=== PATIENT | female | born 1960 | race Caucasian/White ===

== ENCOUNTER 2017-08-28 21:04 | Emergency (ER) | payer BC, OTHER ==
[~2017-08-28] VITALS: Ht 170.2 cm; Wt 61.2 kg
--- NOTE | 2017-08-28 21:35 | NUR ---
PT C/O NAUSEA, AND BURNING PAIN RADIATING FROM CHEST TO L ARM X 1 DAY. DENIES VOMITING OR SOB. NO ACUTE DISTRESS NOTED AT THIS TIME.
--- NOTE | 2017-08-28 21:45 | NUR ---
PT ALSO C/O DIARRHEA X1 DAY
--- NOTE | 2017-08-28 21:57 | NUR ---
ER MD at bedside for patient evaluation
[2017-08-28] MEDS ORDERED: MAG HYDROX/AL HYDROX/SIMETH 30 ML LIQUID UDC PO ONE (22:00)
[2017-08-28] MEDS ORDERED: ASPIRIN 81 MG TAB.CHEW PO ONE (22:00)
[2017-08-28 22:12] LABS: BASOPHILS % (AUTO) 0.4 % (0.0-2.0); EOSINOPHILS # (AUTO) 0.1 K/uL (0.0-0.7); HEMATOCRIT 38.9 % (31.2-41.9); HEMOGLOBIN 13.1 g/dL (10.9-14.3); LYMPHOCYTES % (AUTO) 29.2 % (20.5-51.5); MEAN CORPUSCULAR HEMOGLOBIN 29.4 uug (24.7-32.8); MEAN CORPUSCULAR HGB CONC 34 g/dL (32.3-35.6); MEAN CORPUSCULAR VOLUME 87.3 fL (75.5-95.3); MONOCYTES # (AUTO) 0.5 K/uL (2.0-10.0); MONOCYTES % (AUTO) 7.7 % (0.0-11.0); NEUTROPHILS # (AUTO) 4.2 K/uL (1.8-8.9); NEUTROPHILS % (AUTO) 60.7 % (38.5-71.5); PLATELET COUNT (AUTO) 309 K/uL (179-408); RED BLOOD CELL COUNT(AUTO) 4.46 MIL/uL (3.63-4.92); WHITE BLOOD COUNT (AUTO) 6.9 K/uL (3.8-11.8)
[2017-08-28] MEDS ORDERED: MAG HYDROX/AL HYDROX/SIMETH 30 ML LIQUID UDC ONE (22:18)
[2017-08-28] MEDS ORDERED: ASPIRIN 81 MG TAB.CHEW ONE (22:18)
[2017-08-28 22:27] LABS: CREATININE 0.9 mg/dL (0.6-1.3); POTASSIUM 3.7 mmol/L (3.5-5.1)
[2017-08-28 22:33] LABS: BILIRUBIN,DIRECT 0.1 mg/dL (0.0-0.2); BILIRUBIN,TOTAL 0.6 mg/dL (0.2-1.0); TOTAL PROTEIN, SERUM 7.8 g/dL (6.4-8.2)
[2017-08-28] MEDS ORDERED: ONDANSETRON ODT 4 MG TAB.RAPDIS SL ONE (23:30)
--- NOTE | 2017-08-28 23:37 | NUR ---
Patient discharged to home in stable conditon. Written and verbal after care instructions given. Patient verbalizes understanding of instructions. ALL BELONGINGS W/ PATIENT. PERIPHERAL IV REMOVED PRIOR TO DISCHARGE
[2017-08-28 23:39] VITALS: BP 126/71
[2017-08-28] MEDS ORDERED: ONDANSETRON ODT 4 MG TAB.RAPDIS ONE (23:47)
== END 2017-08-28 23:41 | disposition home or self-care (01) ==
LOC: ER 21:05
DX: R07.89 Other chest pain (principal); F32.9 Major depressive disorder, single episode, unspecified; J45.909 Unspecified asthma, uncomplicated
CPT/HCPCS: 36415; 70030-TC; 71045; 85025; 85730; 93005; A4663; Q0162

== ENCOUNTER 2017-09-01 20:59 | Emergency (ER) | payer BC ==
[~2017-09-01] VITALS: Ht 170.2 cm; Wt 59.0 kg
[2017-09-01] MEDS ORDERED: ESCITALOPRAM 5 MG (21:18)
[2017-09-01] MEDS ORDERED: CONJUGATED ESTROGENS (21:18)
[2017-09-01] MEDS ORDERED: CODEINE (21:18)
[2017-09-01] MEDS ORDERED: LORAZEPAM 1MG TABLETS (21:18)
[2017-09-01] MEDS ORDERED: MEDROXYPROGESTERONE (21:18)
[2017-09-01] MEDS ORDERED: PROMETHAZINE (21:18)
[2017-09-01] MEDS ORDERED: METOCLOPRAMIDE 10 MG (21:18)
--- NOTE | 2017-09-01 21:21 | NUR ---
DR. SIDDIQI AT BEDSIDE FOR MSE.
[2017-09-01] MEDS ORDERED: KETOROLAC TROMETHAMINE 30 MG INJ IVP ONE (21:30)
[2017-09-01] MEDS ORDERED: IV NORMAL SALINE 1000 ML BAG IV ONE (21:30)
[2017-09-01] MEDS ORDERED: ONDANSETRON 4 MG/2 ML VIAL IV ONE (21:30)
[2017-09-01 21:41] LABS: *BILIRUBIN,URIN NEGATIVE (NEGATIVE); *BLOOD, URINE Trace-intact (NEGATIVE); *CLARITY,URINE CLEAR (CLEAR); *COLOR,URINE LIGHT YELLOW (YELLOW); *KETONES,URINE TRACE (NEGATIVE); *PROTEIN,URINE NEGATIVE (NEGATIVE); *UROBILINOGEN,URINE 0.2 E.U./dl (NORMAL); LEUKOCYTE ESTERASE ,URINE TRACE (NEGATIVE); NITRITE, URINE NEGATIVE (NEGATIVE); UGLUCOSE NEGATIVE (NEGATIVE)
[2017-09-01 21:47] LABS: BASOPHILS % (AUTO) 0.2 % (0.0-2.0); EOSINOPHILS # (AUTO) 0.1 K/uL (0.0-0.7); EOSINOPHILS % (AUTO) 1.8 % (0.0-7.0); HEMATOCRIT 37.4 % (31.2-41.9); LYMPHOCYTES # (AUTO) 2.2 K/uL (20.0-40.0); LYMPHOCYTES % (AUTO) 33.2 % (20.5-51.5); MEAN CORPUSCULAR HGB CONC 35 g/dL (32.3-35.6); MEAN CORPUSCULAR VOLUME 86.6 fL (75.5-95.3); MONOCYTES # (AUTO) 0.7 K/uL (2.0-10.0); MONOCYTES % (AUTO) 10.8 % (0.0-11.0); NEUTROPHILS # (AUTO) 3.5 K/uL (1.8-8.9); PLATELET COUNT (AUTO) 306 K/uL (179-408); RED BLOOD CELL COUNT(AUTO) 4.32 MIL/uL (3.63-4.92); WHITE BLOOD COUNT (AUTO) 6.5 K/uL (3.8-11.8)
[2017-09-01 21:48] LABS: POTASSIUM 4.5 mmol/L (3.5-5.1)
[2017-09-01] MEDS ORDERED: ONDANSETRON 4 MG/2 ML VIAL ONE (21:54)
[2017-09-01] MEDS ORDERED: KETOROLAC TROMETHAMINE 30 MG INJ ONE (21:54)
[2017-09-01 21:55] LABS: RBC,URINE 0-3 /HPF (0-3); SQUAMOUS EPITHELIAL CELL,UR FEW /HPF (NONE SEEN)
[2017-09-01] MEDS ORDERED: LORAZEPAM 0.5 MG TABLET PO ONE (22:00)
[2017-09-01 22:01] LABS: BILIRUBIN,DIRECT 0.1 mg/dL (0.0-0.2); BILIRUBIN,TOTAL 0.5 mg/dL (0.2-1.0); TOTAL PROTEIN, SERUM 8.4 g/dL (6.4-8.2)
[2017-09-01] MEDS ORDERED: LORAZEPAM 0.5 MG TABLET ONE (22:14)
--- NOTE | 2017-09-02 | NUR ---
Patient discharged to home in stable conditon. Written and verbal after care instructions given. Patient verbalizes understanding of instructions. PATIENT LEFT WITH STABLE GAIT.
[2017-09-02 00:01] VITALS: BP 136/76
== END 2017-09-02 00:02 | disposition home or self-care (01) ==
LOC: ER 20:59
DX: N39.0 Urinary tract infection, site not specified (principal); J45.909 Unspecified asthma, uncomplicated; Z87.442 Personal history of urinary calculi; K42.9 Umbilical hernia without obstruction or gangrene; K38.1 Appendicular concretions; Z88.1 Allergy status to other antibiotic agents
CPT/HCPCS: 36415; 83690; 85025; 87086; A4663; J1885; J2405; J7030

== ENCOUNTER 2022-07-23 14:30 | Emergency (ER) | payer BC, OTHER ==
[~2022-07-23] VITALS: Ht 167.6 cm; Wt 71.2 kg
[~2022-07-23 14:30] MED LIST: CODEINE; CONJUGATED ESTROGENS; ESCITALOPRAM 5 MG; LORAZEPAM 1MG TABLETS; MEDROXYPROGESTERONE; METOCLOPRAMIDE 10 MG; PROMETHAZINE
[2022-07-23] MEDS ORDERED: IV NORMAL SALINE 500 ML BAG IV ONE (14:45)
[2022-07-23] MEDS ORDERED: KETOROLAC TROMETHAMINE 15 MG INJ IVP ONE (14:45)
[2022-07-23] MEDS ORDERED: ONDANSETRON 4 MG/2 ML VIAL IV ONE (14:45)
[2022-07-23] MEDS ORDERED: FAMOTIDINE. 20 MG/2 ML VIAL IV ONE ×2 (14:45→15:03)
[2022-07-23] MEDS ORDERED: KETOROLAC TROMETHAMINE 15 MG INJ ONE (15:03)
[2022-07-23] MEDS ORDERED: ONDANSETRON 4 MG/2 ML VIAL ONE (15:03)
[2022-07-23 15:06] LABS: HEMATOCRIT 40.2 % (31.2-41.9); MEAN CORPUSCULAR HEMOGLOBIN 28.6 uug (24.7-32.8); MEAN CORPUSCULAR VOLUME 86.2 fL (75.5-95.3); PLATELET COUNT (AUTO) 335 K/uL (179-408)
[2022-07-23 15:18] LABS: BILIRUBIN,DIRECT 0.1 mg/dL (0.0-0.2); BILIRUBIN,TOTAL 0.4 mg/dL (0.2-1.0); CREATININE 0.8 mg/dL (0.6-1.3); POTASSIUM 3.9 mmol/L (3.5-5.1); TOTAL PROTEIN, SERUM 8.2 g/dL (6.4-8.2)
[2022-07-23 15:53] LABS: *BILIRUBIN,URIN NEGATIVE (NEGATIVE); *CLARITY,URINE CLEAR (CLEAR); *COLOR,URINE YELLOW (YELLOW); *KETONES,URINE NEGATIVE (NEGATIVE); *UROBILINOGEN,URINE 0.2 E.U./dl (NORMAL); LEUKOCYTE ESTERASE ,URINE 1+ (NEGATIVE); NITRITE, URINE NEGATIVE (NEGATIVE); UGLUCOSE NEGATIVE (NEGATIVE)
[2022-07-23 15:59] LABS: *BLOOD, URINE TRACE (NEGATIVE)
[2022-07-23] MEDS ORDERED: ONDA4TAB11 PO (16:21)
[2022-07-23] MEDS ORDERED: AMOX-430 PO (16:21)
--- NOTE | 2022-07-23 16:34 | NUR ---
Patient presents to the ER, C/O abdominal pain/nausea. Patient A/O X 4, seen by the MD #[id number] angio-cath to (LT) F/A, blood collected and sent. Patient placed on the threat monitoring analyst, NSR observed. Patient medicated as per MD orders (see eMAR). ECG ordered and completed. Patient transported [facility] Patient is stable on the stretcher, in the lowest position, call tyson within reach and awaiting disposition. Patient seen and cleared for discharge home, Angio-cath removed, site WNL and dry protective/pressure dressing in place. Discharge instructions provided. Patient is stable, left ambulatory.
[2022-07-23 18:44] LABS: RBC,URINE NONE SEEN /HPF (0-3); SQUAMOUS EPITHELIAL CELL,UR FEW /HPF (NONE SEEN)
[2022-07-23 18:45] LABS: BACTERIA,URINE FEW /HPF (NONE SEEN)
== END 2022-07-23 16:37 | disposition home or self-care (01) ==
LOC: ER 14:36
DX: K52.9 Noninfective gastroenteritis and colitis, unspecified (principal); R10.10 Upper abdominal pain, unspecified; Z87.442 Personal history of urinary calculi; J45.909 Unspecified asthma, uncomplicated
CPT/HCPCS: 99285; 74176; 96374; 96375; 96361; 80076; 80048; 81001; 83690; 85025; 36415; 93005; 87040; J3490; J1885; J2405; J7040; A4663

== ENCOUNTER 2025-04-30 19:19 | Emergency (ER) | payer OTHER ==
[~2025-04-30] VITALS: Ht 170.2 cm; Wt 73.0 kg
[~2025-04-30 19:19] MED LIST changes: +AMOX-430 PO; +ONDA4TAB11 PO
[2025-04-30 19:25] VITALS: BP 156/54
[2025-04-30 21:21] LABS: PLATELET COUNT (AUTO) 317 K/uL (179-408); RED BLOOD CELL COUNT(AUTO) 4.59 MIL/uL (3.63-4.92); RED CELL DISTRIBUTION WIDTH 14.7 % (12.3-17.7); WHITE BLOOD COUNT (AUTO) 5.6 K/uL (3.8-11.8)
[2025-04-30 21:25] LABS: *BILIRUBIN,URIN NEGATIVE (NEGATIVE); *CLARITY,URINE CLEAR (CLEAR); *COLOR,URINE YELLOW (YELLOW); *KETONES,URINE NEGATIVE (NEGATIVE); *PROTEIN,URINE NEGATIVE (NEGATIVE); *UROBILINOGEN,URINE 0.2 E.U./dl (NORMAL); LEUKOCYTE ESTERASE ,URINE 1+ (NEGATIVE); NITRITE, URINE NEGATIVE (NEGATIVE); UGLUCOSE NEGATIVE (NEGATIVE)
[2025-04-30 21:26] LABS: *BLOOD, URINE TRACE (NEGATIVE)
[2025-04-30 21:26] LABS: CREATININE 0.7 mg/dL (0.6-1.3); SODIUM SERUM 140.0 mmol/L (136-145); UREA NITROGEN, BLOOD 19.0 mg/dL (7-18)
[2025-04-30 21:32] LABS: SQUAMOUS EPITHELIAL CELL,UR FEW /HPF (NONE SEEN)
[2025-04-30 21:33] LABS: ASPARTATE AMINOTRANSFERASE 13.0 U/L (15-37); TOTAL PROTEIN, SERUM 7.6 g/dL (6.4-8.2)
[2025-05-01 01:15] VITALS: BP 145/55; TEMP 98; O2SAT 97
== END 2025-05-01 01:15 | disposition home or self-care (01) ==
LOC: ER 19:25
DX: R22.43 Localized swelling, mass and lump, lower limb, bilateral (principal); J45.909 Unspecified asthma, uncomplicated; R07.9 Chest pain, unspecified; Z88.1 Allergy status to other antibiotic agents
CPT/HCPCS: 36415; 71045; 84484; 85025; 87086; A4606; A4663